=== PATIENT | female | born 1980 ===

== ENCOUNTER 2022-02-07 13:12 | Day surgery (SDC) | payer OTHER ==
[~2022-02-07] VITALS: Ht 157.5 cm; Wt 95.1 kg
[2022-02-07] VITALS (9 sets, daily range): BP systolic 117–141; BP diastolic 67–85; PULSE 65–110; TEMP 98–98.8
[2022-02-07] MEDS ORDERED: ROXICODONE 55 MG/TAB PO (19:18)
--- NOTE | 2022-02-07 19:50 | NUR ---
PT ARRIVED TO ROOM VIA BED FROM PACU. PT IS ALERT AND ORIENTED X4. HAS BANDAIDS X4 TO ABDOMEN. DENIES PAIN. IV TO LEFT AC, NO REDNESS OR SWELLING NOTED. DENIES PAIN OR NAUSEA. ICE WATER AND JELLO PROVIDED.
--- NOTE | 2022-02-07 21:00 | NUR ---
PT EATS TURKEY SANDWICH AND JUICE. IVF CAPPED, INT TO LAC. DENIES PAIN. INDEPENDENT IN ROOM.
--- NOTE | 2022-02-08 02:30 | NUR ---
PT TAKES SCHEDULED MOTRIN WITHOUT PROBLEM. DENIES NEED FOR STRONGER PAIN MEDS AT THIS TIME.
[2022-02-08 04:49] VITALS: BP 115/71; PULSE 77; TEMP 98.5
--- NOTE | 2022-02-08 05:00 | NUR ---
SCHEDULED ES TYLENOL GIVEN. REPLACED UMB BANDAID D/T LEAKING. VOIDING WITHOUT PROBLEM.
[2022-02-08 08:00] VITALS: BP 128/85; PULSE 65; TEMP 97.8
--- NOTE | 2022-02-08 09:29 | NUR ---
Initial visit; Patient thanked Canned Food Reconditioning Inspector for visiting, offering prayer and comfort. Canned Food Reconditioning Inspector wished the patient well and also offered God's blessings.
--- NOTE | 2022-02-08 10:14 | NUR ---
metal control worker met with patient to discuss discharge plan. Patient currently resides in [place]. States that she and her Pasha ([phone]) are PCSing to [place] in April and are [place] Due to this she does not have a PCP established here yet. She would like any medications sent to [facility] upon discharge. Patient's established [facility] is her Pasha. Patient will have no needs up dc. Discharge plan: Home
[2022-02-08 11:57] VITALS: BP 130/88; PULSE 64; TEMP 98.4
--- NOTE | 2022-02-08 12:04 | NUR ---
PT IS DISCHARGED TO HOME WITH . EDUCATION ET INSTRUCTIONS GIVEN, DEMONSTRATES UNDERSTANDING. PT LIVES OUT OF STATE ET WILL BE TRAVELING BACK TO [place] TOMORROW. PT INSTRUCTED TO F/U WITH HER PCP.
== END 2022-02-08 12:00 | disposition home or self-care (01) ==
LOC: SDCO 13:12 → SURG 20:02 → SDCO 02-08 12:00
DX: K80.00 Calculus of gallbladder with acute cholecystitis without obstruction (principal)
CPT/HCPCS: OP; J0330; J1100; J1170; J1885; J1956; J2370; J2405; J2704; J3010; J7120